=== PATIENT | female | born 1985 | race African-American/Black ===

== ENCOUNTER → 2016-10-21 | Outpatient (CLI) | payer MEDICAID ==
--- NOTE | 2016-10-22 09:05 | WOMENS IMAGING REPORT ---
EXAM DESCRIPTION: U/S BREAST UNILATERAL, COMPL COMPLETED DATE/TIME: 10/21/2016 2:37 pm REASON FOR STUDY: UNSPECIFIED LUMP IN BREAST; N63 N63 UNSPECIFIED LUMP IN BREAST COMPARISON: None. TECHNIQUE: Real-time and static grayscale imaging performed of the entire left breast. Selected colo r Doppler images recorded. LIMITATIONS: None. FINDINGS: MASS: No mass identified. Normal glandular tissue. No dilated ducts. No focal mass. No galactocele or cysts. OTHER: No other significant finding. IMPRESSION: No suspicious findings detected by ultrasound. BIRAD: 1 Negative. RECOMMENDATION: RECOMMENDED FOLLOW-UP: Follow-up as clinically indicated. COMMENT: The [employer] ([employer]) has developed recommendations for screening MRI of the breasts in certain patient populations, to be used in conjunction with mammography. Breast MRI s urveillance may be appropriate for women with more than 20% lifetime risk of developing breast cancer as determined by genetic testing, significant family history of the disease, or history of mantle r adiation for Hodgkins Disease. ACR Practice Guidelines 2008. TECHNICAL DOCUMENTATION: JOB ID: [id number] [employer]- All Rights Reserved
== END ==
LOC: WI 13:54
PROVIDERS: ATTEND Physician Assistant Medical
DX: N63 Unspecified lump in breast (principal); Z80.3 Family history of malignant neoplasm of breast
CPT/HCPCS: 76641

== ENCOUNTER 2017-06-13 18:38 | Emergency (ER) | payer SELFPAY ==
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
[2017-06-13] MEDS ORDERED: AZITHROMYCIN 250 MG TABLET PO ONE (23:17)
[2017-06-13] MEDS ORDERED: CEFTRIAXONE INJ 250 MG VIAL IM ONE (23:17)
[2017-06-13] MEDS ORDERED: LIDOCAINE 1% INJ-PF (10 MG/ML) 30 ML SDV INJ ONE (23:17)
[2017-06-13 23:20] LABS: EPITHELIALS (WET MOUNT) 3+ EPITHELIALS SEEN; RBCS (WET MOUNT) NO RBCS SEEN; T.VAGINALIS (WET MOUNT) NO TRICHOMONAS SEEN; WBCS (WET MOUNT) NO WBCS SEEN; YEAST (WET MOUNT) NO YEAST SEEN
[2017-06-14 00:46] LABS: CHLAM PCR NOT DETECTED (NOT DETECT); GON PCR NOT DETECTED (NOT DETECT)
[2017-06-14 01:10] VITALS: BP 110/63
== END 2017-06-14 01:12 | disposition home or self-care (01) ==
LOC: ER 18:38
DX: T74.21XA Adult sexual abuse, confirmed, initial encounter (principal); Y04.8XXA Assault by other bodily force, initial encounter; Y07.59 Other non-family member, perpetrator of maltreatment and neglect
CPT/HCPCS: 99284; 96372; 87210; 87491; 87591; J3490; J0696

== ENCOUNTER 2017-08-10 04:49 | Emergency (ER) | payer SELFPAY ==
[2017-08-10 04:58] VITALS: BP 130/80
[2017-08-10] MEDS ORDERED: SULFAMETHOXAZOLE/TRIMETHOPRIM 800-160 MG TABLET PO ONE (05:42)
[2017-08-10] MEDS ORDERED: ACETAMINOPHEN 325 MG TABLET PO ONE (05:42)
[2017-08-10] MEDS ORDERED: LORAZEPAM 1 MG TABLET PO ONE (05:42)
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
== END 2017-08-10 06:35 | disposition home or self-care (01) ==
LOC: ER 04:49
DX: L03.115 Cellulitis of right lower limb (principal); T24.101A Burn of first degree of unspecified site of right lower limb, except ankle and foot, initial encounter; W86.1XXA Exposure to industrial wiring, appliances and electrical machinery, initial encounter; Z91.040 Latex allergy status
CPT/HCPCS: 99283

== ENCOUNTER 2017-10-02 19:19 | Emergency (ER) | payer OTHER ==
[2017-10-02 19:45] VITALS: BP 131/86
[2017-10-02] MEDS ORDERED: ONDANSETRON 4 MG TAB.RAPDIS PO ONE (20:52)
[2017-10-02] MEDS ORDERED: ACETAMINOPHEN 325 MG TABLET PO ONE (20:54)
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
[2017-10-02 21:39] LABS: APPEARANCE,URINE SLIGHTLY-CLOUDY; BILIRUBIN,URINE NEGATIVE (NEGATIVE); COLOR,URINE YELLOW; GLUCOSE, URINE NEGATIVE (NEGATIVE); KETONES,URINE NEGATIVE (NEGATIVE); LEUKOCYTE ESTERASE,URINE MODERATE (NEGATIVE); NITRITE,URINE NEGATIVE (NEGATIVE); PROTEIN,URINE NEGATIVE (NEGATIVE); URINE SPECIFIC GRAVITY 1.012; UROBILINOGEN,URINE NEGATIVE mg/dL (<2.0)
[2017-10-02] MEDS ORDERED: IBUPROFEN 600 MG TABLET PO ONE (22:39)
== END 2017-10-02 23:11 | disposition home or self-care (01) ==
LOC: ER 19:19
DX: R10.2 Pelvic and perineal pain (principal); R11.2 Nausea with vomiting, unspecified; F17.200 Nicotine dependence, unspecified, uncomplicated; Z91.040 Latex allergy status
CPT/HCPCS: 99283; 36415; 81025; 81001; S0119

== ENCOUNTER 2017-10-08 17:49 | Emergency (ER) | payer SELFPAY ==
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
--- NOTE | 2017-10-08 18:46 | RADIOLOGY REPORT (SQ) ---
EXAM DESCRIPTION: CT HEAD WITHOUT COMPLETED DATE/TIME: 10/08/2017 6:25 pm REASON FOR STUDY: left facial numbness COMPARISON: None. TECHNIQUE: Axial images acquired through the brain without intravenous contrast. Images reviewed wi th bone, brain and subdural windows. Additional sagittal and coronal reconstructions were generated. Images stored on PACS. All CT scanners at this facility use dose modulation, iterative reconstruction, and/or weight based d osing when appropriate to reduce radiation dose to as low as reasonably achievable (ALARA). [facility]: Dose Right [facility]: CareDose [facility]: Dose Right [facility]: Teradose 4D [facility]: Smart [employer] RADIATION DOSE: CT Rad equipment meets quality standard of care and radiation dose reduction techniq ues were employed. CTDIvol: 53.2 mGy. DLP: 1097 mGy-cm. mGy. LIMITATIONS: None. FINDINGS: VENTRICLES: Normal size and contour. CEREBRUM: No masses. No hemorrhage. No midline shift. No evidence for acute infarction. Normal gra y/white matter differentiation. No areas of low density in the white matter. CEREBELLUM: No masses. No hemorrhage. No alteration of density. No evidence for acute infarction. EXTRAAXIAL SPACES: No fluid collections. No masses. ORBITS AND GLOBE: No intra- or extraconal masses. Normal contour of globe without masses. CALVARIUM: No fracture. PARANASAL SINUSES: No fluid or mucosal thickening. SOFT TISSUES: No mass or hematoma. OTHER: No other significant finding. IMPRESSION: NORMAL BRAIN CT WITHOUT CONTRAST. EVIDENCE OF ACUTE STROKE: NO. COMMENT: Quality ID # [id number]: Final reports with documentation of one or more dose reduction techniques (e.g., Automated exposure control, adjustment of the mA and/or kV according to patient size, use of iterative reconstruction technique) TECHNICAL DOCUMENTATION: JOB ID: [id number] [email or web address]- All Rights Reserved Reading location - IP/workstation name: [email or web address]
[2017-10-08] MEDS ORDERED: BENZOCAINE/MENTHOL AEROSOL SPRAY 56 ML TOP ONE (18:50)
[2017-10-08] MEDS ORDERED: ACETAMINOPHEN 325 MG TABLET PO ONE (18:50)
--- NOTE | 2017-10-08 18:51 | ER Document Report ---
ED General - General Chief Complaint: Pelvic Pain Stated Complaint: PELVIC PAIN Time Seen by Provider: 10/08/17 18:06 Mode of Arrival: Ambulatory Notes: Patient is a 32-year-old female who presents with concerns of ongoing discomfort to her right lower labia minora from a prior injury to the area. Patient states that each time she urinates she experiences severe, burning, stinging pain to the area. She has not turning to improve the pain. Nothing that seems to trigger worsen the pain is urination on the area. She denies any isolated dysuria, urinary frequency or urinary hesitancy. She was seen in the emergency room approximately week ago for the same and at that time the exam was again reassuring. The patient states that she is concerned that she continues to have discomfort to the area and appears that the area is worsening. In triage to be noted the patient apparently complained of some facial drooping which she denies complaining of to me and denies this concern at this time point. TRAVEL OUTSIDE OF THE [place] IN LAST 30 DAYS: No - Related Data Allergies/Adverse Reactions: adhesive [Adhesive] Allergy (Mild, Verified 10/08/17 18:13) Generalized Itching latex [Latex] Allergy (Unknown, Verified 10/08/17 18:13) Generalized Itching naproxen [Naproxen] Adverse Reaction (Intermediate, Verified 10/08/17 18:13) vomiting, abdominal cramping Past Medical History - General Information source: Patient - Social History Smoking Status: Current Every Day Smoker Frequency of alcohol use: Social Drug Abuse: Marijuana Lives with: Other - [facility] Family History: Arthritis, Malignancy, Thyroid Disfunction Patient has suicidal ideation: No Patient has homicidal ideation: No Pulmonary Medical History: Denies: Hx Asthma Renal/ Medical History: Reports: Hx Ectopic - 2. Denies: Hx Peritoneal Dialysis GI Medical History: Reports: Hx Gastroesophageal Reflux Disease, Hx Ulcer, Hx Endoscopy Psychiatric Medical History: Reports: Hx Anxiety Denies: Hx Depression Past Surgical History: Reports: Hx Abdominal Surgery - adhesion surgery, Hx Section - 4, Hx Gynecologic Surgery - right fallopian tube removed due to ectopic - Immunizations Immunizations up to date: Yes Hx Diphtheria, Pertussis, Tetanus Vaccination: Yes Review of Systems - Review of Systems Notes: Constitutional: Negative for fever. HENT: Negative for sore throat. Eyes: Negative for visual changes. Cardiovascular: Negative for chest pain. Respiratory: Negative for shortness of breath. Gastrointestinal: Negative for abdominal pain, vomiting or diarrhea. Genitourinary: Positive for vaginal pain Musculoskeletal: Negative for back pain. Skin: Negative for rash. Neurological: Negative for headaches, weakness or numbness. 10 point ROS negative except as marked above and in HPI. Physical Exam - Vital signs Vitals: Temp Pulse Resp BP Pulse Ox 98.9 F 80 16 133/82 H 100 10/08/17 17:53 10/08/17 17:53 10/08/17 17:53 10/08/17 17:53 10/08/17 17:53 Interpretation: Normal Notes: PHYSICAL EXAMINATION: GENERAL: Well-appearing, well-nourished and in no acute distress. HEAD: Atraumatic, normocephalic. EYES: Pupils equal round and reactive to light, extraocular movements intact, sclera anicteric, conjunctiva are normal. ENT: nares patent, oropharynx clear without exudates. Moist mucous membranes. NECK: Normal range of motion, supple without lymphadenopathy LUNGS: Breath sounds clear to auscultation bilaterally and equal. No wheezes rales or rhonchi. HEART: Regular rate and rhythm without murmurs ABDOMEN: Soft, nontender, normoactive bowel sounds. No guarding, no rebound. No masses appreciated. : Examination performed with Sima JURADO at bedside. There is a very small superficial laceration to the right labia minora at approximately 7 o'clock position without any surrounding induration, erythema or discharge. EXTREMITIES: Normal range of motion, no pitting or edema. No cyanosis. NEUROLOGICAL: No focal neurological deficits. Moves all extremities spontaneously and on command. PSYCH: Normal mood, normal affect. SKIN: Warm, Dry, normal turgor, no rashes or lesions noted. Course - Re-evaluation Re-evalutation: 10/08/17 18:46 Patient presents with concerns of ongoing right labial pain specifically on the labia minora from a prior tear. She was seen proximally for the same although the area appears to be very well healing. There is a very superficial wound at this time point but no areas that would suggest infection at this time point. She notes the pain is only present when she urinates and urine gets on to the area. I have encouraged her to place a Vaseline gauze barrier to the area prior to urinating to prevent contamination to the wound and decrease her pain. She denies any additional complaints to me although apparently in triage she did complain of some left eye drooping. There is no presence of facial droop on examination, no eye drooping. A CT of the head was apparently ordered in triage. This is noted to be unremarkable. The patient is otherwise extremely well in appearance and I do not clinically suspect an acute stroke or any other neurologic condition as an etiology of her prior complaint of which she now does not complain. At this time will discharge with return precautions and follow-up recommendations. Verbal discharge instructions given a the bedside and opportunity for questions given. Medication warnings reviewed. Patient is in agreement with this plan and has verbalized understanding of return precautions and the need for primary care follow-up in the next 24-72 hours. - Vital Signs Vital signs: Temp Pulse Resp BP Pulse Ox 98.9 F 80 16 133/82 H 100 10/08/17 17:53 10/08/17 17:53 10/08/17 17:53 10/08/17 17:53 10/08/17 17:53 - Diagnostic Test Radiology reviewed: Image reviewed, Reports reviewed Radiology results interpreted by me: 10/08/17 18:47 CT head: No acute intracranial bleed or mass Discharge - Discharge Clinical Impression: Vaginal pain, Vaginal mucosa tear Condition: Good Disposition: HOME, SELF-CARE Additional Instructions: The wound on your labia minora is well-healing, I would encourage you to Place Vaseline over the wound prior to urinating to prevent burning when urine touches the area. Return for any additional concerns you may have including fever greater than 100.4F, worsening pain to the area, bleeding from the area, or any other symptoms that are worrisome to you.
[2017-10-08] MEDS ORDERED: BENZOCAINE/MENTHOL AEROSOL SPRAY 56 ML ONE (19:13)
[2017-10-08] MEDS ORDERED: LIDOCAINE 2% JELLY 5 ML TUBE TOP ONE (19:49)
[2017-10-08 20:03] VITALS: BP 120/85
== END 2017-10-08 20:03 | disposition home or self-care (01) ==
LOC: ER 17:49
DX: S31.41XD Laceration without foreign body of vagina and vulva, subsequent encounter (principal); X58.XXXD Exposure to other specified factors, subsequent encounter; R10.2 Pelvic and perineal pain; F12.10 Cannabis abuse, uncomplicated; F17.200 Nicotine dependence, unspecified, uncomplicated; Z91.048 Other nonmedicinal substance allergy status; Z91.040 Latex allergy status
CPT/HCPCS: 70450; 99284; J3490

== ENCOUNTER → 2017-12-22 | Outpatient (CLI) | payer OTHER ==
[2017-12-22 11:21] LABS: ABSOLUTE LYMPHOCYTES (AUTO) 2.2 10^3/uL (0.5-4.7); ABSOLUTE MONOCYTES (AUTO) 0.3 10^3/uL (0.1-1.4); ABSOLUTE NEUT (AUTO) 1.2 10^3/uL (1.7-8.2); EOSINOPHILS % (AUTO) 0.9 % (0-6); HEMATOCRIT 38.2 % (36.0-47.0); HEMOGLOBIN 12.9 g/dL (12.0-15.5); LYMPHOCYTES % (AUTO) 57.7 % (13-45); MEAN CORPUSCULAR HEMOGLOBIN 30.8 pg (27.0-33.4); MEAN CORPUSCULAR HGB CONC 33.8 g/dL (32.0-36.0); MEAN CORPUSCULAR VOLUME 91 fl (80-97); MONOCYTES % (AUTO) 8.6 % (3-13); PLATELET COUNT 266 10^3/uL (150-450); RED CELL DISTRIBUTION WIDTH 15.3 % (11.5-14.0); SEGMENTED NEUTROPHILS % (AUTO) 31.8 % (42-78); TOTAL CELLS COUNTED % (AUTO) 100 %; WHITE BLOOD COUNT 3.9 10^3/uL (4.0-10.5)
[2017-12-22 11:44] LABS: ALANINE AMINOTRANSFERASE 24 U/L (9-52); ALBUMIN 4.3 g/dL (3.5-5.0); ALKALINE PHOSPHATASE 69 U/L (38-126); ANION GAP 12 (5-19); ASPARTATE AMINO TRANSFERASE 18 U/L (14-36); BILIRUBIN,DIRECT 0.3 mg/dL (0.0-0.4); BILIRUBIN,TOTAL 1.2 mg/dL (0.2-1.3); BLOOD UREA NITROGEN 9 mg/dL (7-20); CALCIUM 9.4 mg/dL (8.4-10.2); CARBON DIOXIDE 24 mmol/L (22-30); CHLORIDE 107 mmol/L (98-107); GLUCOSE 83 mg/dL (75-110); LIPASE 63.8 U/L (23-300); POTASSIUM 4.4 mmol/L (3.6-5.0); TOTAL PROTEIN 7.6 g/dL (6.3-8.2)
--- NOTE | 2017-12-22 12:11 | RADIOLOGY REPORT (SQ) ---
EXAM DESCRIPTION: CT ABD/PELVIS ORAL ONLY COMPLETED DATE/TIME: 12/22/2017 10:47 am REASON FOR STUDY: CHRONIC CONSTIPATION (K59.00) K59.00 CONSTIPATION, UNSPECIFIED COMPARISON: CT abdomen pelvis 04/25/2011, 12/14/2009 TECHNIQUE: CT scan of the abdomen and pelvis performed without intravenous contrast. Patient drank oral contrast. Images reviewed with lung, soft tissue, and bone windows. Reconstructed coronal and s agittal MPR images reviewed. All images stored on PACS. All CT scanners at this facility use dose modulation, iterative reconstruction, and/or weight based d osing when appropriate to reduce radiation dose to as low as reasonably achievable (ALARA). [facility]: Dose Right [facility]: CareDose [facility]: Dose Right [facility]: Teradose 4D [facility]: Edlogics RADIATION DOSE: CT Rad equipment meets quality standard of care and radiation dose reduction techniq ues were employed. CTDIvol: 5.0 mGy. DLP: 263 mGy-cm.mGy. LIMITATIONS: None. FINDINGS: LOWER CHEST: No significant findings. No nodules or infiltrates. NON-CONTRASTED LIVER, SPLEEN, ADRENALS: Evaluation limited by lack of IV contrast. No identified sign ificant masses. PANCREAS: No masses. No peripancreatic inflammatory changes. GALLBLADDER: No identified stones by CT criteria. No inflammatory changes to suggest cholecystitis. RIGHT KIDNEY AND URETER: No suspicious masses. Assessment limited by lack of IV contrast. No signif icant calcifications. No hydronephrosis or hydroureter. LEFT KIDNEY AND URETER: No suspicious masses. Assessment limited by lack of IV contrast. No signifi cant calcifications. No hydronephrosis or hydroureter. AORTA AND RETROPERITONEUM: No aneurysm. No retroperitoneal masses or adenopathy. BOWEL AND PERITONEAL CAVITY: Patient drank oral contrast. No CT evidence of bowel obstruction. No f ree intraperitoneal air or fluid. No constipation. No colonic diverticulosis. APPENDIX: Normal. PELVIS, BLADDER, AND ABDOMINAL WALL:No abnormal masses. No free fluid. Bladder normal. Normal size f emale pelvic organs BONES: No significant findings. OTHER: No other significant finding. IMPRESSION: NO SIGNIFICANT OR ACUTE PROCESS IN THE ABDOMEN OR PELVIS. COMMENT: Quality ID # [id number]: Final reports with documentation of one or more dose reduction techniques (e.g., Automated exposure control, adjustment of the mA and/or kV according to patient size, use of iterative reconstruction technique) TECHNICAL DOCUMENTATION: JOB ID: [id number] [employer]- All Rights Reserved Reading location - IP/workstation name: [email or web address]
== END ==
LOC: RAD 09:47
PROVIDERS: ATTEND Internal Medicine Pulmonary Disease
DX: K59.00 Constipation, unspecified (principal); R10.9 Unspecified abdominal pain
CPT/HCPCS: 36415; 74176; 80053; 83690; 84443; 85025

== ENCOUNTER 2018-08-24 03:03 | Emergency (ER) | payer SELFPAY ==
[2018-08-24] MEDS ORDERED: OXYCODONE-ACETAMINOPHEN 5-325 MG TABLET PO ONE (07:21)
[2018-08-24] MEDS ORDERED: PENICILLIN V POTASSIUM 500 MG TABLET PO ONE (07:22)
--- NOTE | 2018-08-24 07:28 | ER Document Report ---
ED General - General Chief Complaint: Jaw Pain Stated Complaint: MOUTH PAIN Time Seen by Provider: 08/24/18 06:11 TRAVEL OUTSIDE OF THE [place] IN LAST 30 DAYS: No - HPI Notes: Patient is a 33-year-old female presents emergency department for evaluation of dental pain. She states a few weeks ago she was eating, and believes she cracked her tooth. It has been hurting intermittently. She states, however, over the last 24 hours her pain is increased significantly. She states she grinds her teeth, believes that she made it worse. She noticed facial swelling since early this morning. She states it hurts to open her mouth. She is able to breathe without difficulty, able to swallow without difficulty. She states all chewing hurts, even on the unaffected side. No fevers. - Related Data Allergies/Adverse Reactions: adhesive [Adhesive] Allergy (Mild, Verified 10/08/17 18:13) Generalized Itching latex [Latex] Allergy (Unknown, Verified 10/08/17 18:13) Generalized Itching naproxen [Naproxen] Adverse Reaction (Intermediate, Verified 10/08/17 18:13) vomiting, abdominal cramping Past Medical History - General Information source: Patient - Social History Smoking Status: Current Every Day Smoker Family History: Arthritis, Malignancy, Thyroid Disfunction Pulmonary Medical History: Denies: Hx Asthma Renal/ Medical History: Reports: Hx Ectopic - 2. Denies: Hx Peritoneal Dialysis GI Medical History: Reports: Hx Gastroesophageal Reflux Disease, Hx Ulcer, Hx Endoscopy Psychiatric Medical History: Reports: Hx Anxiety Denies: Hx Depression Past Surgical History: Reports: Hx Abdominal Surgery - adhesion surgery, Hx Section - 4, Hx Gynecologic Surgery - right fallopian tube removed due to ectopic - Immunizations Immunizations up to date: Yes Hx Diphtheria, Pertussis, Tetanus Vaccination: Yes Review of Systems - Review of Systems Constitutional: No symptoms reported EENT: See HPI Cardiovascular: No symptoms reported Respiratory: No symptoms reported Gastrointestinal: No symptoms reported Genitourinary: No symptoms reported Female Genitourinary: No symptoms reported Musculoskeletal: No symptoms reported Skin: No symptoms reported Neurological/Psychological: No symptoms reported Physical Exam - Vital signs Vitals: Temp Pulse Resp BP Pulse Ox 98.3 F 93 16 133/67 H 97 08/24/18 03:10 08/24/18 03:10 08/24/18 03:10 08/24/18 03:10 08/24/18 03:10 - Notes Notes: Vital signs reviewed, please see chart. Head is normocephalic. Pupils are equal, round, reactive to light. Overall dentition is in fair condition. The first, right, mandibular molar is fractured with resultant areas of decay. There is gingival edema surrounding. No sublingual swelling. There is a moderate amount of facial edema without fluctuance that corresponds with the location of this tooth. No submandibular adenopathy. Heart is regular rate and rhythm, without murmur. Lungs are clear to oscillation bilaterally. Course - Re-evaluation Re-evalutation: 08/24/18 07:27 Patient presented to the emergency department for evaluation. She was initially brought into the ED had a very busy time. I sent up to see the patient, unfo rtunately she was outside smoking. I did go back and see her again. She was offered pain medication and antibiotics while here. We will send her home with a prescription for antibiotics. It was explained to the patient that she needs to see a dentist for definitive care. She voiced understanding to this. She is to return to the ED with worsening or new concerning symptoms of any sort. - Vital Signs Vital signs: Temp Pulse Resp BP Pulse Ox 98.3 F 93 16 133/67 H 97 08/24/18 03:10 08/24/18 03:10 08/24/18 03:10 08/24/18 03:10 08/24/18 03:10 Discharge - Discharge Clinical Impression: Dental abscess Condition: Stable Disposition: HOME, SELF-CARE Instructions: Dental Infection or Abscess ([facility]) Additional Instructions: Take all of the antibiotic as prescribed until gone. Sagp-[id number]-[id number] ibuprofen, with food, as needed for pain. You need to see a dentist as soon as possible for definitive care. Included in your discharge papers is reduced rate dentists. You can also contact the dentist at [facility], at [phone]. Return to the emergency department with worsening or new concerning symptoms. Forms: Smoking Cessation Education
[2018-08-24 07:48] VITALS: BP 129/82
== END 2018-08-24 07:50 | disposition home or self-care (01) ==
LOC: ER 03:03
DX: K04.7 Periapical abscess without sinus (principal); R68.84 Jaw pain; K08.89 Other specified disorders of teeth and supporting structures; R22.0 Localized swelling, mass and lump, head; F17.200 Nicotine dependence, unspecified, uncomplicated
CPT/HCPCS: 99283

== ENCOUNTER 2018-12-06 23:36 | Observation (INO) | payer OTHER ==
[2018-12-06] MEDS ORDERED: CEFTRIAXONE 1 GM/D5W RTU 50 ML IV ONE (23:43)
[2018-12-07] MEDS ORDERED: MORPHINE SULFATE 10 MG/ML INJ IV ONE ×2 (00:07→04:09)
[2018-12-07] MEDS ORDERED: PROMETHAZINE HCL INJ 25 MG/1 ML VIAL IV ONE (00:32)
--- NOTE | 2018-12-07 00:32 | ER Document Report ---
ED General - General Chief Complaint: Abdominal Cramping Stated Complaint: VAGINAL BLEEDING Time Seen by Provider: 12/06/18 23:42 Notes: Patient is a G 10 P4 33-year-old incarcerated female who presents the emergency department with a chief complaint of vaginal bleeding and left lower abdominal pain. She states that her symptoms started about 4 days ago and has progressively gotten worse. She has had a positive test in [facility]. She has a history of an ectopic with a tubal removal. Patient is not sure of when her last menstrual cycle is. She is not quite sure if it was in September or November. Patient states that she is nauseated. Patient states that she is [place] and is refusing any blood draws due to her advent beliefs. According to her, her needs to give consent, but due to her being incarcerated, we are not able to contact with her . TRAVEL OUTSIDE OF THE [place] IN LAST 30 DAYS: No - Related Data Allergies/Adverse Reactions: adhesive [Adhesive] Allergy (Mild, Verified 08/30/18 11:51) Generalized Itching latex [Latex] Allergy (Unknown, Verified 08/30/18 11:51) Generalized Itching naproxen [Naproxen] Adverse Reaction (Intermediate, Verified 08/30/18 11:51) vomiting, abdominal cramping Past Medical History - Social History Smoking Status: Current Every Day Smoker Family History: Arthritis, Malignancy, Reviewed & Not Pertinent, Thyroid Disfunction Pulmonary Medical History: Denies: Hx Asthma Renal/ Medical History: Reports: Hx Ectopic - 2. Denies: Hx Peritoneal Dialysis GI Medical History: Reports: Hx Gastroesophageal Reflux Disease, Hx Ulcer, Hx Endoscopy Psychiatric Medical History: Reports: Hx Anxiety Denies: Hx Depression Past Surgical History: Reports: Hx Abdominal Surgery - adhesion surgery, Hx Section - 4, Hx Gynecologic Surgery - right fallopian tube removed due to ectopic - Immunizations Immunizations up to date: Yes Hx Diphtheria, Pertussis, Tetanus Vaccination: Yes Review of Systems - Review of Systems Notes: REVIEW OF SYSTEMS: CONSTITUTIONAL : Denies recent illness. Denies recent unintentional weight loss. Denies fever, chills, or sweats. EENT: Denies eye, ear, throat, or mouth pain, discharge, or symptoms. Denies nasal or sinus congestion. CARDIOVASCULAR: Denies chest pain. RESPIRATORY: Denies shortness of breath, cough, congestion, difficulty breathing, or wheezing. GASTROINTESTINAL: See HPI GENITOURINARY: Denies difficulty urinating, burning, blood in urine, urgency or frequency. FEMALE GENITOURINARY: See HPI MUSCULOSKELETAL: Denies neck and back pain. Denies joint pain or swelling. SKIN: Denies rash, itchiness, or lesions HEMATOLOGIC : Denies easy bruising or bleeding. LYMPHATIC: Denies swollen, painful, enlarged glands. NEUROLOGICAL: Denies no numbness or tingling denies weakness. Denies headache. Denies altered mental status. Denies alteration in speech. PSYCHIATRIC: Denies stress, anxiety, alteration in sleep patterns, or depression. All other systems reviewed and negative. Physical Exam - Vital signs Vitals: Temp Pulse Resp BP Pulse Ox 98.7 F 83 16 125/85 100 12/06/18 23:41 12/06/18 23:41 12/06/18 23:41 12/06/18 23:41 12/06/18 23:41 - Notes Notes: PHYSICAL EXAMINATION: GENERAL: Appears well, healthy, well-nourished, no acute distress. HEAD: Normocephalic, atraumatic. EYES: PERRL, conjunctiva normal, all extraocular movements intact, sclera nonicteric ENT: Moist mucous membranes. NECK: Supple, no noticeable swelling, redness, rash. Normal range of motion. LUNGS: Equal breath sounds bilaterally and clear to auscultation. No wheezes rales or rhonchi. CARDIOVASCULAR: S1-S2, regular rate, regular rhythm. Radial pulses 2+, normal. ABDOMEN: Normoactive bowel sounds. Soft, very tender left lower quadrant, mild guarding, no rebound tenderness, and no masses palpated. EXTREMITIES: Normal strength and range of motion, no pitting or edema. No cyanosis. NEUROLOGICAL: Moves all extremities upon command. Strength 5/5 in all extremities. PSYCH: Normal mood, normal affect. SKIN: Warm, dry. No rash, lesions, ulcerations noted. Normal skin turgor. 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 Left adnexal tenderness noted on bimanual exam. Course - Re-evaluation Re-evalutation: 12/07/18 03:30 Patient's urine shows a positive hCG. Her transvaginal ultrasound does not show any at this time. There is a right ovarian cyst. I spoke to the patient again about the importance of having a quantitative hCG. She still wants to wait to see if she can get a hold of her her father for consent. Pelvic exam done with RHIANNON Barry at bedside. Patient had left sided adnexal tenderness. 12/07/18 05:54 Patient's wet mount shows 3+ bacteria. No yeast or trichomonas noted. Spoke with Dr. Burrell, the POSTULANT on-call. She states that the patient needs a quantitative hCG to have a complete picture. I explained this to the patient and she would like to [facility] to try again to contact her family. I told the patient that the quantitative hCG is important in determining whether or not she has an ectopic or not. 12/07/18 06:33 Dr. Burrell came to bedside and spoke with the patient. Dr. Burrell will admit the patient for observation at this time, as the patient can have a possible ectopic . 12/07/18 06:52 Patient has now been given consent from her to be able to have her blood drawn. I relayed this information on to Dr. Burrell. Labs ordered. - Vital Signs Vital signs: Temp Pulse Resp BP Pulse Ox 98.8 F 86 15 126/80 H 100 12/07/18 08:02 12/07/18 08:02 12/07/18 08:02 12/07/18 08:02 12/07/18 08:02 - Laboratory Laboratory results interpreted by me: 12/07/18 00:39 Urine Ketones TRACE H Urine Blood SMALL H Urine HCG, Qual POSITIVE H Discharge - Discharge Clinical Impression: Left lower quadrant abdominal pain Qualifiers: Weeks of gestation: unspecified Qualified Code(s): Z34.90 - Encounter for supervision of normal , unspecified, unspecified trimester Condition: Stable Disposition: ADMITTED OBSERVATION Admitting Provider: [facility] Unit Admitted: Medical Floor
[2018-12-07 01:07] LABS: AMORPHOUS SEDIMENT,URINE TRACE /HPF; APPEARANCE,URINE CLOUDY; BILIRUBIN,URINE NEGATIVE (NEGATIVE); CALCIUM OXALATE CRYSTALS,URINE FEW /HPF; COLOR,URINE AMBER; GLUCOSE, URINE NEGATIVE (NEGATIVE); KETONES,URINE TRACE mg/dL (NEGATIVE); LEUKOCYTE ESTERASE,URINE NEGATIVE (NEGATIVE); NITRITE,URINE NEGATIVE (NEGATIVE); PROTEIN,URINE NEGATIVE (NEGATIVE); URINE SPECIFIC GRAVITY 1.023; UROBILINOGEN,URINE NEGATIVE mg/dL (<2.0)
--- NOTE | 2018-12-07 03:46 | RADIOLOGY REPORT (SQ) ---
EXAM DESCRIPTION: US TRANSVAGINAL COMPLETED DATE/TME: 12/07/2018 00:07 CLINICAL HISTORY: 33 years, Female, vaginal bleeding; L pelvic pain COMPARISON: None. TECHNIQUE: Transvaginal pelvic ultrasound LIMITATIONS: None. FINDINGS: The uterus is anteverted and measures 10.6 x 5.4 x 4.6 cm. No intrauterine gestational sac is identified. The endometrium measures up to 6 mm in thickness. The cervix measures 3.1 cm in length. Right ovary measures 4.1 x 3.9 x 3.9 cm. The right ovary contains a 3.6 x 3.3 x 2.6 cm hemorrhagic cyst. The right ovary demonstrates normal vascular flow. The left ovary measures 2.1 x 1.3 x 1.1 cm. The left ovary demonstrates normal flow. No abnormal adnexal mass. IMPRESSION: No evidence of an intrauterine gestational sac. This may be due to an early . Recommend follow-up ultrasound and correlation with beta hCG. Right ovarian hemorrhagic cyst. copyright 2010 [employer]- All Rights Reserved
[2018-12-07 04:49] LABS: BACTERIA (WET MOUNT) 3+ BACTERIA SEEN; RBCS (WET MOUNT) 4+ RBCS SEEN; T.VAGINALIS (WET MOUNT) NO TRICHOMONAS SEEN; WBCS (WET MOUNT) FEW WBCS SEEN; YEAST (WET MOUNT) NO YEAST SEEN
[2018-12-07 06:21] LABS: CHLAM PCR NOT DETECTED (NOT DETECT)
--- NOTE | 2018-12-07 07:18 | PDOC H&P ---
History of Present Illness Admission Date/PCP: 12/07/2018 Patient complains of: LLQ pain, vaginal bleeding, History of Present Illness: CLIFTON LE is a 33 year old female (SAB, EAB, Ectopic x 3) presents from [facility] with vaginal bleeding, + test at halfway on intake and now also has left lower quadrant pain requesting narcotics. She has a history of 3 ectopic being treated with MTX and then left Salpingectomy in the past per Op report. Pt is a poor historian. She reported that she thought that prior salpingectomy was the right. She also reports that she did not consent to BTL. However, Operative reports from 03/2016 notes that ABSENT LEFT FALLOPIAN TUBE and RIGHT FALLOPIAN TUBE WITH FILSCIE clip. She has had 4 sections. Notes and history sparse and somewhat inconsistent as C/S H&P from 2016 states G11 which would make patient G12 now. Pt reports today only 10 including this one. Officer with patient and reviewed patient with Right tubal ligation and missing left tubes is ectopic until proven otherwise and until patient consents for BHCG would be unable to make a determination on patients status or risk. She is apparently awaiting or father approval for ok to have blood draw. Recommend CMP, T&S, BHCG needed. Reviewed very high risk for ectopic with patient prior history. Patient was reportedly disengaged from [facility] [place] due to changing a narcotic rx in 2015. Past Medical History Gynecological Infection: Yes Pulmonary Medical History: Denies: Asthma GI Medical History: Reports: Gastroesophageal Reflux Disease Psychiatric Medical History: Denies: Depression Past Surgical History Past Surgical History: Reports: Section - 4, Other - bartholins masupialization, multiple I & D, Salpingectomy Social History Smoking Status: Unknown if Ever Smoked - Advance Directive Resuscitation Status: Full Code Family History Family History: Arthritis, Malignancy, Reviewed & Not Pertinent, Thyroid Disfunction Parental Family History Reviewed: No Children Family History Reviewed: NA Sibling(s) Family History Reviewed.: NA Medication/Allergy Allergies/Adverse Reactions: adhesive [Adhesive] Allergy (Mild, Verified 08/30/18 11:51) Generalized Itching latex [Latex] Allergy (Unknown, Verified 08/30/18 11:51) Generalized Itching naproxen [Naproxen] Adverse Reaction (Intermediate, Verified 08/30/18 11:51) vomiting, abdominal cramping Review of Systems Constitutional: ABSENT: chills, fever(s), headache(s), weight gain, weight loss Cardiovascular: ABSENT: chest pain, dyspnea on exertion, edema, orthropnea, palpitations Respiratory: ABSENT: cough, hemoptysis Gastrointestinal: PRESENT: abdominal pain. ABSENT: constipation, diarrhea, hematemesis, hematochezia, nausea, vomiting Genitourinary: ABSENT: dysuria, hematuria Musculoskeletal: ABSENT: joint swelling Neurological: ABSENT: abnormal gait, abnormal speech, confusion, dizziness, focal weakness, syncope Physical Exam - Physical Exam Vital Signs: Temp Pulse Resp BP Pulse Ox 98.7 F 83 16 125/85 100 12/06/18 23:41 12/06/18 23:41 12/06/18 23:41 12/06/18 23:41 12/06/18 23:41 Intake & Output 12/05/18 12/06/18 12/07/18 06:59 06:59 06:59 Weight 73.028 kg General appearance: PRESENT: no acute distress, well-developed, well-nourished Head exam: PRESENT: atraumatic, normocephalic Respiratory exam: PRESENT: clear to auscultation sterling, symmetrical, unlabored Cardiovascular exam: PRESENT: RRR. ABSENT: diastolic murmur, rubs, systolic murmur GI/Abdominal exam: PRESENT: normal bowel sounds, soft, tenderness - ttp diffuse lower abd area, no rebound, no guarding.. ABSENT: distended, guarding, mass, organolmegaly, rebound Rectal exam: PRESENT: deferred Extremities exam: PRESENT: full ROM. ABSENT: calf tenderness, clubbing, pedal edema Musculoskeletal exam: PRESENT: ambulatory Neurological exam: PRESENT: alert, awake, oriented to person, oriented to place, oriented to time, oriented to situation, CN II-XII grossly intact. ABSENT: motor sensory deficit Psychiatric exam: PRESENT: appropriate affect, normal mood. ABSENT: homicidal ideation, suicidal ideation Skin exam: PRESENT: dry, intact, warm. ABSENT: cyanosis, rash Result Laboratory Results: 12/07/18 00:39 Urine Color [place] Urine Appearance CLOUDY Urine pH 7.0 Ur Specific [place] 1.023 Urine Protein NEGATIVE Urine Glucose (UA) NEGATIVE Urine Ketones TRACE H Urine Blood SMALL H Urine Nitrite NEGATIVE Ur Leukocyte Esterase NEGATIVE Urine WBC (Auto) 4 Urine RBC (Auto) 3 Impressions: Obstetrics Ultrasound 12/07/18 00:07 IMPRESSION: No evidence of an intrauterine gestational sac. This may be due to an early . Recommend follow-up ultrasound and correlation with beta hCG. Right ovarian hemorrhagic cyst. copyright 2010 [employer]- All Rights Reserved Status: Imported from PACS Assessment & Plan - Diagnosis (1) History of ectopic Is this a current diagnosis for this admission?: Yes Plan: h/o 3 ectopics including salpingectomy (2) H/O tubal ligation Is this a current diagnosis for this admission?: Yes Plan: absent left fallopian tube and op report 2016 with right fallopian tube filsche clip placed (3) Qualifiers: Weeks of gestation: unspecified Qualified Code(s): Z34.90 - Encounter for supervision of normal , unspecified, unspecified trimester Is this a current diagnosis for this admission?: Yes Plan: Pt unsure if LMP september or November. Unknown BHCG but high risk ectopic due to surgical and history. Needs further evaluation -officer at bedside contacting halfway and attempting to find someone to give consent for blood draw. Admit for observation to continue evaluation for now. - Time Time Spent: 50 to 70 Minutes Medications reviewed and adjusted accordingly: Yes Anticipated discharge: Home Within: within 48 hours - Inpatient Certification Based on my medical assessment, after consideration of the patient's comorbidities, presenting symptoms, or acuity I expect that the services needed warrant INPATIENT care.: Yes I certify that my determination is in accordance with my understanding of Medicare's requirements for reasonable and necessary INPATIENT services [42 CFR 412.3e].: Yes Medical Necessity: Need Close Monitoring Due to Risk of Patient Decompensation, Need For IV Fluids, Need for Pain Control, Need for Surgery
[2018-12-07] MEDS ORDERED: GLUCAGON,HUMAN RECOMB 1 MG INJ SUBCUT PRN (08:20)
[2018-12-07] MEDS ORDERED: DEXTROSE 40% GEL 15 GM TUBE PO PRN ×2 (08:20)
[2018-12-07] MEDS ORDERED: DEXTROSE 50%-WATER 25 GM/50 ML DISP.SYRIN IV PRN ×2 (08:20)
[2018-12-07] MEDS ORDERED: HYDROMORPHONE HCL INJ/PF 2 MG/ML AMPULE IV ONE (08:30)
[2018-12-07 11:50] VITALS: BP 111/69
== END 2018-12-07 12:47 | disposition left against medical advice (07) ==
LOC: ER 23:36 → UNDOADMOB 12-07 06:41 → EH 12-07 06:41 → 2N 12-07 08:05
PROVIDERS: ADMIT Student in an Organized Health Care Education/Training Program; ATTEND Student in an Organized Health Care Education/Training Program
DX: O09.10 Supervision of pregnancy with history of ectopic pregnancy, unspecified trimester (principal); O34.80 Maternal care for other abnormalities of pelvic organs, unspecified trimester; N83.201 Unspecified ovarian cyst, right side; O26.899 Other specified pregnancy related conditions, unspecified trimester; R11.0 Nausea; R10.32 Left lower quadrant pain; O46.90 Antepartum hemorrhage, unspecified, unspecified trimester; O99.330 Smoking (tobacco) complicating pregnancy, unspecified trimester; F17.200 Nicotine dependence, unspecified, uncomplicated; Z90.79 Acquired absence of other genital organ(s); Z98.51 Tubal ligation status; Z87.59 Personal history of other complications of pregnancy, childbirth and the puerperium; Z98.890 Other specified postprocedural states; Z87.11 Personal history of peptic ulcer disease; Z87.19 Personal history of other diseases of the digestive system
CPT/HCPCS: 96376; 99285; 96374; 96375; 87086; 87210; 81025; 81001; 87491; 87591; 76817; G0378 ×2; J2270; J1170; J2550

== ENCOUNTER 2018-12-07 17:47 | Emergency (ER) | payer OTHER ==
[2018-12-07] MEDS ORDERED: NORMAL SALINE 1000 ML 1,000 ML IV ONE (18:52)
--- NOTE | 2018-12-07 19:10 | ER Document Report ---
ED General - General Chief Complaint: Lower Abdominal Pain Stated Complaint: ABDOMINAL PAIN Time Seen by Provider: 12/07/18 18:13 Notes: Patient is a 33-year-old female, that presents to the emergency department for chief complaint of vaginal bleeding and pelvic cramping. Patient states she found out she was while she was in senior care in October, she thinks she is approximately 8 weeks gravid, she was seen in the emergency department earlier today, refused that blood work drawn, but was very high risk for ectopic given that she has had 3 in the past, has been having vaginal bleeding, she had tubal ligation as well as salpingectomy, is now testing positive for . She was admitted to the [facility], but the patient left AMA because she refused to have blood work done, citing holiness reasons. However when she was back to senior care because she continued to have bleeding and pelvic pain and cramping so they brought her back to the emergency department to be reevaluated. She currently rates her pain as a 5 or 6 out of 10 describes as constant aching, she is been passing clots as well. She states she is went through several pads since leaving the hospital earlier today. Denies any lightheadedness, dizziness, but admits to having nausea and a few episodes of vomiting. Past Medical History: History of ectopic pregnancies Past Surgical History: Tubal ligation, salpingectomy Social History: Admits to smoking cigarettes, and occasional alcohol use, history of drug use. Family History: Reviewed and noncontributory for presenting illness Allergies: Reviewed, see documented allergy list. REVIEW OF SYSTEMS: Other than noted above, the 12 point review of systems was reviewed with the patient and were negative, all pertinent findings are included in the HPI. PHYSICAL EXAMINATION: Vital signs reviewed, nursing noted reviewed. GENERAL: Appears uncomfortable on exam, no acute distress however. HEAD: Atraumatic, normocephalic. EYES: Eyes appear normal, extraocular movements intact, sclera anicteric, conjunctiva are normal. ENT: nares patent, oropharynx clear without exudates. Moist mucous membranes. NECK: Normal range of motion, supple without lymphadenopathy LUNGS: Breath sounds clear to auscultation bilaterally and equal. No wheezes rales or rhonchi. HEART: Regular rate and rhythm without murmurs ABDOMEN: Soft, mild lower abdominal tenderness with palpation, normoactive bowel sounds. No rebound, guarding, or rigidity. No masses appreciated. EXTREMITIES: Nontender, good range of motion, no pitting or edema. NEUROLOGICAL: No focal neurological deficits. Moves all extremities spontaneously Motor and sensory grossly intact on exam. PSYCH: Normal mood, normal affect. SKIN: Warm, Dry, normal turgor, no rashes or lesions noted on exposed skin TRAVEL OUTSIDE OF THE [place] IN LAST 30 DAYS: No - Related Data Allergies/Adverse Reactions: adhesive [Adhesive] Allergy (Mild, Verified 08/30/18 11:51) Generalized Itching latex [Latex] Allergy (Unknown, Verified 08/30/18 11:51) Generalized Itching naproxen [Naproxen] Adverse Reaction (Intermediate, Verified 08/30/18 11:51) vomiting, abdominal cramping Past Medical History - Social History Smoking Status: Current Every Day Smoker Frequency of alcohol use: Social Drug Abuse: None Family History: Arthritis, Malignancy, Reviewed & Not Pertinent, Thyroid Disfunction Patient has suicidal ideation: No Patient has homicidal ideation: No Pulmonary Medical History: Denies: Hx Asthma Renal/ Medical History: Reports: Hx Ectopic - 2. Denies: Hx Peritoneal Dialysis GI Medical History: Reports: Hx Gastroesophageal Reflux Disease, Hx Ulcer, Hx Endoscopy Psychiatric Medical History: Reports: Hx Anxiety Denies: Hx Depression Past Surgical History: Reports: Hx Abdominal Surgery - adhesion surgery, Hx Section - 4, Hx Gynecologic Surgery - right fallopian tube removed due to ectopic, Other - bartholins masupialization, multiple I & D, Salpingectomy - Immunizations Immunizations up to date: Yes Hx Diphtheria, Pertussis, Tetanus Vaccination: Yes Physical Exam - Vital signs Vitals: Temp Pulse Resp BP Pulse Ox 98.7 F 101 H 16 137/88 H 99 12/07/18 18:02 12/07/18 18:02 12/07/18 18:02 12/07/18 18:02 12/07/18 18:02 Course - Re-evaluation Re-evalutation: Patient seen and examined vital signs reviewed. Laboratory data and/or imaging were ordered as appropriate for the patient's presenting symptoms and complaint, with consideration of any critical or life threatening conditions that may be associated with their obtained history and exam as noted above. Patient was treated with IV fluids, Tylenol and Zofran Results were reviewed when available and demonstrated negative hCG, negative quant, no significant anemia, O+ blood type, no indication for RhoGam The patient was re-evaluated and was stable, this point patient was given Toradol after negative hCG, did discuss with [facility], stated that she likely had a miscarriage, which I agreed, if she continues to have bleeding, she can follow-up as outpatient for outpatient D&C, patient is stable at this time, not having uncontrolled bleeding. Evaluation was most consistent with miscarriage. Results were discussed with the patient at this point, after careful consideration I feel that that patient can be discharged from the emergency department, the patient was educated treatments and reasons to return to the emergency department based on their presumed diagnosis as noted above, they were advised to followup with a primary care physician in 2-3 days. Patient was agreeable to plan of care. *Note is created using voice recognition software and may contain spelling, syntax or grammatical errors. Laboratory 12/07/18 12/07/18 12/07/18 19:33 21:00 21:00 WBC 8.2 RBC 3.97 Hgb 12.0 Hct 36.3 MCV 92 MCH 30.2 MCHC 33.0 RDW 15.8 H Plt Count 250 Seg Neutrophils % 51.6 Lymphocytes % 39.3 Monocytes % 7.8 Eosinophils % 0.4 Basophils % 0.9 Absolute Neutrophils 4.2 Absolute Lymphocytes 3.2 Absolute Monocytes 0.6 Absolute Eosinophils 0.0 Absolute Basophils 0.1 Sodium 138.1 Potassium 4.0 Chloride 106 Carbon Dioxide 26 Anion Gap 6 BUN 16 Creatinine 0.70 Est GFR ( Amer) > 60 Est GFR (Non-Af Amer) > 60 Glucose 89 Calcium 8.8 Total Bilirubin 0.3 Direct Bilirubin 0.1 Neonat Total Bilirubin Not Reportable Neonat Direct Bilirubin Not Reportable Neonat Indirect Bili Not Reportable AST 39 H ALT 22 Alkaline Phosphatase 75 Total Protein 6.7 Albumin 3.7 Beta HCG, Quant < 2.39 Total Beta HCG NEGATIVE Urine Color YELLOW Urine Appearance CLOUDY Urine pH 8.0 Ur Specific [place] 1.020 Urine Protein NEGATIVE Urine Glucose (UA) NEGATIVE Urine Ketones NEGATIVE Urine Blood MODERATE H Urine Nitrite NEGATIVE Urine Bilirubin NEGATIVE Urine Urobilinogen NEGATIVE Ur Leukocyte Esterase NEGATIVE Urine WBC (Auto) 4 Urine RBC (Auto) 91 Urine Bacteria (Auto) 1+ Squamous Epi Cells Auto 1 Calcium Oxalate Cr Auto MODERATE Amorphous Sediment Auto TRACE Urine Mucus (Auto) FEW Urine Ascorbic Acid NEGATIVE Blood Type Rhogam Indicated 12/07/18 21:00 WBC RBC Hgb Hct MCV MCH MCHC RDW Plt Count Seg Neutrophils % Lymphocytes % Monocytes % Eosinophils % Basophils % Absolute Neutrophils Absolute Lymphocytes Absolute Monocytes Absolute Eosinophils Absolute Basophils Sodium Potassium Chloride Carbon Dioxide Anion Gap BUN Creatinine Est GFR ( Amer) Est GFR (Non-Af Amer) Glucose Calcium Total Bilirubin Direct Bilirubin Neonat Total Bilirubin Neonat Direct Bilirubin Neonat Indirect Bili AST ALT Alkaline Phosphatase Total Protein Albumin Beta HCG, Quant Total Beta HCG Urine Color Urine Appearance Urine pH Ur Specific [place] Urine Protein Urine Glucose (UA) Urine Ketones Urine Blood Urine Nitrite Urine Bilirubin Urine Urobilinogen Ur Leukocyte Esterase Urine WBC (Auto) Urine RBC (Auto) Urine Bacteria (Auto) Squamous Epi Cells Auto Calcium Oxalate Cr Auto Amorphous Sediment Auto Urine Mucus (Auto) Urine Ascorbic Acid Blood Type O POSITIVE Rhogam Indicated RHOGAM NOT INDICATED - Vital Signs Vital signs: Temp Pulse Resp BP Pulse Ox 98.7 F 101 H 16 137/88 H 99 12/07/18 18:02 12/07/18 18:02 12/07/18 18:02 12/07/18 18:02 12/07/18 18:02 - Laboratory Result Diagrams: 12/07/18 21:00 12/07/18 21:00 Laboratory results interpreted by me: 12/07/18 12/07/18 12/07/18 19:33 21:00 21:00 RDW 15.8 H AST 39 H Urine Blood MODERATE H Discharge - Discharge Clinical Impression: Miscarriage Condition: Stable Disposition: HOME, SELF-CARE Instructions: Miscarriage ([facility]) Additional Instructions: If you have symptoms such as lightheadedness, shortness of breath, or passing out with continued vaginal bleeding, please return to the emergency department sooner. You need to follow-up with [facility] as outpatient within the next week. Referrals: [facility] [Provider Group] - Follow up in 3-5 days (call for appointment. )
[2018-12-07 19:54] LABS: AMORPHOUS SEDIMENT,URINE TRACE /HPF; APPEARANCE,URINE CLOUDY; BILIRUBIN,URINE NEGATIVE (NEGATIVE); CALCIUM OXALATE CRYSTALS,URINE MODERATE /HPF; COLOR,URINE YELLOW; GLUCOSE, URINE NEGATIVE (NEGATIVE); KETONES,URINE NEGATIVE (NEGATIVE); LEUKOCYTE ESTERASE,URINE NEGATIVE (NEGATIVE); NITRITE,URINE NEGATIVE (NEGATIVE); PROTEIN,URINE NEGATIVE (NEGATIVE); UROBILINOGEN,URINE NEGATIVE mg/dL (<2.0)
[2018-12-07] MEDS ORDERED: ACETAMINOPHEN 325 MG TABLET PO ONE (20:38)
[2018-12-07] MEDS ORDERED: ONDANSETRON HCL INJ/PF 4 MG/2 ML SDV IV ONE (21:09)
[2018-12-07 21:11] LABS: ABSOLUTE BASOPHILS # (AUTO) 0.1 10^3/uL (0.0-0.2); ABSOLUTE LYMPHOCYTES (AUTO) 3.2 10^3/uL (0.5-4.7); ABSOLUTE MONOCYTES (AUTO) 0.6 10^3/uL (0.1-1.4); ABSOLUTE NEUT (AUTO) 4.2 10^3/uL (1.7-8.2); BASOPHILS % (AUTO) 0.9 % (0-2); EOSINOPHILS % (AUTO) 0.4 % (0-6); HEMATOCRIT 36.3 % (36.0-47.0); LYMPHOCYTES % (AUTO) 39.3 % (13-45); MEAN CORPUSCULAR HEMOGLOBIN 30.2 pg (27.0-33.4); MEAN CORPUSCULAR VOLUME 92 fl (80-97); MONOCYTES % (AUTO) 7.8 % (3-13); PLATELET COUNT 250 10^3/uL (150-450); RED BLOOD COUNT 3.97 10^6/uL (3.72-5.28); RED CELL DISTRIBUTION WIDTH 15.8 % (11.5-14.0); SEGMENTED NEUTROPHILS % (AUTO) 51.6 % (42-78); TOTAL CELLS COUNTED % (AUTO) 100 %; WHITE BLOOD COUNT 8.2 10^3/uL (4.0-10.5)
[2018-12-07 21:30] LABS: ALANINE AMINOTRANSFERASE 22 U/L (9-52); ALBUMIN 3.7 g/dL (3.5-5.0); ALKALINE PHOSPHATASE 75 U/L (38-126); ANION GAP 6 (5-19); ASPARTATE AMINO TRANSFERASE 39 U/L (14-36); BILIRUBIN,DIRECT 0.1 mg/dL (0.0-0.4); BILIRUBIN,TOTAL 0.3 mg/dL (0.2-1.3); BLOOD UREA NITROGEN 16 mg/dL (7-20); CALCIUM 8.8 mg/dL (8.4-10.2); CARBON DIOXIDE 26 mmol/L (22-30); CHLORIDE 106 mmol/L (98-107); GLUCOSE 89 mg/dL (75-110); TOTAL PROTEIN 6.7 g/dL (6.3-8.2)
[2018-12-07] MEDS: ONDANSETRON HCL INJ/PF 4 MG/2 ML SDV IM ONE ×2 (21:39→21:43)
[2018-12-07] MEDS ORDERED: KETOROLAC TROMETHAMINE INJ/PF 30 MG/1 ML SDV IV ONE (22:03)
[2018-12-07 22:43] VITALS: BP 113/74
== END 2018-12-07 23:13 | disposition home or self-care (01) ==
LOC: ER 17:47
DX: O03.9 Complete or unspecified spontaneous abortion without complication (principal); R10.30 Lower abdominal pain, unspecified
CPT/HCPCS: 99284; 96361; 96374; 96375; 86900; 86901; 36415; 84702; 85025; 80053; 81001; J1885; J2405; J7030